=== PATIENT | female | born 1970 | race Caucasian/White ===

== ENCOUNTER 2021-06-10 18:44 | Emergency (ER) | payer OTHER, SELFPAY ==
--- NOTE | ~2021-06-10 | CT_ITS ---
EXAMINATION: CT abdomen pelvis wo con DATE: 06/10/2021 20:49 INDICATION: Right flank pain. TECHNIQUE: Computed tomography (CT) of the abdomen and pelvis was performed without intravenous contr ast. Automated exposure control and iterative reconstruction technique were employed. The dose-length product was 168.38 mGy-cm. COMPARISON: CT abdomen and pelvis 05/02/2013 FINDINGS: The visualized portions of the lung bases demonstrate mild atelectasis. No pleural effusion . The heart size is normal. No pericardial effusion. The liver and spleen are normal. There is a gall stone in the gallbladder, which is normal in size. The pancreas, adrenal glands, and left kidney are normal. There is mild right hydronephrosis. There is a 2 mm stone in proximal right ureter. There are no dilated loops of bowel. There are changes of appendectomy. There is a small umbilical hernia cont aining fat. There are no pathologically enlarged lymph nodes. There is no free intraperitoneal fluid. There are fibroids in the uterus. There is a benign bone island in right ilium. There is mild lumbar spondylosis. IMPRESSION: 1. 2 mm stone in proximal right ureter with mild right hydronephrosis. 2. Cholelithiasis. 3. Umbilical hernia containing fat. Reviewed, dictated and finalized at location A.
[2021-06-10 18:45] VITALS: BP 158/97; PULSE 110; RESP 20; TEMP 37.3; O2SAT 100
[2021-06-10 19:18] LABS: Basophils Percent Auto 0.3 % (0.2-1.2); Eosinophils Absolute Auto 0.1 K/mm3 (0-0.3); Eosinophils Percent Auto 0.5 % (0-4.4); Hematocrit 43.8 % (37.0-47.0); Hemoglobin 13.8 g/dL (12.0-15.0); Immature Granulocyte Absolute 0.05 K/mm3 (0.00-0.031); Immature Granulocyte Percent A 0.4 % (0-0.5); Lymphocytes Absolute Auto 1.41 K/mm3 (0.9-3.2); Lymphocytes Percent Auto 12.1 % (18.3-44.2); Mean Corpuscular HGB Conc 31.5 g/dl (32-36); Mean Corpuscular Hemoglobin 27.5 pg (26-34); Mean Corpuscular Volume 87.3 fl (80-100); Mean Platelet Volume 9.5 fl (7.4-10.4); Monocytes Percent Auto 8.1 % (2.6-8.5); Neutrophils Absolute Auto 9.2 K/mm3 (1.3-6.7); Neutrophils Percent Auto 78.6 % (45.5-73.1); Platelet Count Result 413 k/mm3 (150-375); Red Blood Count 5.02 M/mm3 (4.2-5.4); Red Cell Distribution Width 14.8 % (11.5-14.5); White Blood Count 11.7 K/mm3 (4.5-10.0)
[2021-06-10 19:35] LABS: Alanine Aminotransferase 40 U/L (4-35); Albumin Level 4.7 g/dL (3.5-5.1); Alkaline Phosphatase 82 U/L (38-126); Anion Gap 10 mmol/L (8-16); Aspartate Amino Transferase 28 U/L (14-36); Bilirubin,Total 0.8 mg/dL (0.2-1.3); Blood Urea Nitrogen 14 mg/dL (7-17); Calcium 9.4 mg/dL (8.4-10.2); Carbon Dioxide 24 mmol/L (22-30); Chloride 106 mmol/L (98-107); Estimated CRCL calculation 47 ml/min; Estimated Glomerular Filt Rate 53; Glucose 110 mg/dL (65-110); Lipase 84 U/L (23-300); Potassium 3.8 mmol/L (3.4-5.0); Sodium 140 mmol/L (137-145)
[2021-06-10] MEDS: KETOROLAC 30 MG/ML VIAL (*BKC) IV PUSH (19:50)
--- NOTE | 2021-06-10 19:59 | ED.GENADULT ---
HPI - General Adult General Chief complaint: Back Pain/Injury Stated complaint: back pain Time Seen by Provider: 06/10/21 19:03 History of Present Illness HPI narrative: Patient is a 51-year-old female who presents ER with right flank pain moving into her lower abdomen. Cramping and intense in nature. No nausea or vomiting. Reports history of constipation and has not had a bowel movement for a couple days. Should her pain occurred while she is doing a hula hoop exercise with a 1 pound weight. Patient does have history of kidney stone in the past. She has also had an appendectomy. No history of bowel obstruction. Patient feels bloated. Related Data Home Medications Medication Instructions Recorded Confirmed methimazole 5 mg tablet 2.5 mg PO DAILY tablet 02/23/20 02/28/20 Allergies Allergy/AdvReac Type Severity Reaction Status Date / Time epinephrine Allergy Unknown Unknown Verified 06/09/21 07:50 EPIDURAL Allergy Unknown Unknown Uncoded 06/14/20 13:25 Review of Systems Review of Systems: All systems reviewed & are unremarkable except as noted in HPI and below Constitutional: Constitutional: Denies chills, Denies fever(s) and Denies weakness Gastrointestinal: Gastrointestinal: Reports abdominal pain, Reports bloating, Reports constipation, Denies nausea and Denies vomiting Genitourinary: Genitourinary: Denies abnormal vaginal bleeding, Denies nocturia, Denies dysuria and Reports flank pain Musculoskeletal: Musculoskeletal: Reports back pain, Denies arthralgias and Denies muscle cramps PMFSH Past Medical History Medical History (Updated 06/10/21 @ 21:27 by Fabian Fenton MD) COPD, mild Gastroesophageal reflux disease without esophagitis Hyperthyroidism Left bundle branch block Surgical History Surgical History (Updated 06/10/21 @ 20:01 by Fabian Fenton MD) History of appendectomy Family History Family History Father Hypertension Family history of diabetes mellitus in first degree relative Mother Family history of coronary artery disease Social History Social History Smoking status: Former smoker Alcohol intake: current Gender identity (if verbalized by the patient): Female Exam Narrative: GENERAL: Well-appearing, well-nourished, and in no acute distress. HEAD: Normocephalic, atraumatic. ENT: Mucous membranes moist. CHEST: Clear to auscultation. No respiratory distress. HEART: Regular rate and rhythm. Normal peripheral pulses. ABDOMEN: Soft, nontender, nondistended. No CVA tenderness. EXTREMITIES: Normal range of motion. No edema. SKIN: Warm, dry, no rash. NEURO: Alert and oriented x3. PSYCH: Normal mood and affect. Course Course Emergency Course: Patient informed results. Discussed treatment plan. Discharge home. Vital Signs Vital signs: Vital Signs Temperature 99.1 F 06/10/21 18:45 Pulse Rate 110 H 06/10/21 18:45 Respiratory Rate 20 06/10/21 18:45 Blood Pressure 158/97 H 06/10/21 18:45 Pulse Oximetry 100 06/10/21 18:45 Temperature 99.1 F 06/10/21 18:45 Pulse Rate 110 H 06/10/21 18:45 Respiratory Rate 20 06/10/21 18:45 Blood Pressure 158/97 H 06/10/21 18:45 Pulse Oximetry 100 06/10/21 18:45 Medical Decision Making Vital Signs Vital Signs: Vital Signs Temperature 99.1 F 06/10/21 18:45 Pulse Rate 110 H 06/10/21 18:45 Respiratory Rate 20 06/10/21 18:45 Blood Pressure 158/97 H 06/10/21 18:45 Pulse Oximetry 100 06/10/21 18:45 Temperature 99.1 F 06/10/21 18:45 Pulse Rate 110 H 06/10/21 18:45 Respiratory Rate 20 06/10/21 18:45 Blood Pressure 158/97 H 06/10/21 18:45 Pulse Oximetry 100 06/10/21 18:45 Lab Data Result diagrams: 06/10/21 19:07 06/10/21 19:07 Labs: Lab Results 06/10/21 06/10/21 06/10/21 Range/Units 19:07 19:07 19:37 WBC 11.7 H (4.5-10.0) K
[2021-06-10 20:09] LABS: Add Urine Microscopic? YES; Appearance Urine Clear (Clear); Bilirubin Urine Negative (Negative); Blood Urine 2+ (Negative); Color Urine Straw (Yellow); Glucose Urine UA Negative (Negative); Ketones Urine Negative (Negative); Leukocyte Esterase Ur Negative LEU/UL (Negative); Mucus Urine Rare /lpf; Nitrate Urine Negative (Negative); Protein Urine Negative (Negative); RBC Urine 21-50 /hpf (0-2); Specific Grav Ur 1.017 (1.001-1.035); Squamous Epithelial Cell Urine Few /hpf (Few); Urobilinogen Urine Negative mg/dL (<2.0); WBC Urine 0-3 /hpf
[2021-06-10 22:04] VITALS: BP 129/74; PULSE 78; RESP 18; O2SAT 97
== END 2021-06-10 21:40 | disposition home or self-care (01) ==
PROVIDERS: Physician Assistant; Emergency Provider Emergency Medicine; PCP Family Medicine
DX: N13.2 Hydronephrosis with renal and ureteral calculous obstruction (principal); J44.9 Chronic obstructive pulmonary disease, unspecified; K21.9 Gastro-esophageal reflux disease without esophagitis; E05.90 Thyrotoxicosis, unspecified without thyrotoxic crisis or storm; Z87.891 Personal history of nicotine dependence; K42.9 Umbilical hernia without obstruction or gangrene; K80.20 Calculus of gallbladder without cholecystitis without obstruction
CPT/HCPCS: 36415; 74176; 80053; 81001; 81025; 83690; 85025; 96374; 99284; J1885